=== PATIENT | female | born 1980 | race Caucasian/White ===

== ENCOUNTER 2022-01-25 01:29 | Emergency (ER) | payer MEDICAID ==
[~2022-01-25] VITALS: Ht 170.2 cm; Wt 54.5 kg
[~2022-01-25 01:29] MED LIST: CLON-527 PO; HYDR50CA5 PO; LEVO100T PO; LEVO125T PO; LEVO50TA8 PO; SERT100T PO; TRAZ-251 PO
[2022-01-25 01:39] VITALS: BP 115/70
[2022-01-25 02:16] LABS: BASOPHILS # (AUTO) 0.1 X10'3 (0-0.2); BASOPHILS % (AUTO) 1.2 % (0-1); EOSINOPHILS # (AUTO) 0.1 X10'3 (0-0.9); EOSINOPHILS % (AUTO) 1.8 % (0-6); HEMATOCRIT 30.1 % (35.0-45.0); HEMOGLOBIN 9.8 g/dl (12.0-16.0); LYMPHOCYTES # (AUTO) 2.6 X10'3 (1.1-4.8); LYMPHOCYTES % (AUTO) 41.9 % (21-51); MEAN CORPUSCULAR HEMOGLOBIN 24.1 PG (27.0-31.0); MEAN CORPUSCULAR HGB CONC 32.4 g/dL (33.0-36.5); MEAN CORPUSCULAR VOLUME 74.3 FL (78-98); MEAN PLATELET VOLUME 7.8 FL (7.4-10.4); MONOCYTES # (AUTO) 0.4 X10'3 (0-0.9); MONOCYTES % (AUTO) 7.1 % (2-12); PLATELET COUNT 266 X10'3 (140-440); RED BLOOD COUNT 4.05 X10'6 (4.20-5.60); RED CELL DISTRIBUTION WIDTH 18.5 % (11.5-14.5); WHITE BLOOD COUNT 6.3 X10'3 (4.5-11.0)
[2022-01-25 02:31] LABS: ALANINE AMINOTRANSFERASE 18 U/L (12-78); ALBUMIN 3.8 G/DL (3.4-5.0); ALBUMIN/GLOBULIN RATIO 1.3 (1.1-1.5); ALKALINE PHOSPHATASE 48 IU/L (46-116); ANION GAP 9 (8-16); ASPARTATE AMINO TRANSFERASE 12 U/L (10-37); BILIRUBIN,TOTAL 0.2 MG/DL (0.1-1.0); BLOOD UREA NITROGEN 10 MG/DL (7-18); BUN/CREATININE RATIO 12.8 (6.6-38.0); CALCIUM 8.5 MG/DL (8.5-10.1); CHLORIDE 107 MMOL/L (99-107); CREATININE 0.78 MG/DL (0.40-0.90); GLUCOSE 96 MG/DL (70-104); POTASSIUM 3.4 MMOL/L (3.5-5.1); SODIUM 140 MMOL/L (135-145); TOTAL CARBON DIOXIDE 24.2 MMOL/L (24-32); TOTAL PROTEIN 6.8 G/DL (6.4-8.2); eGFR 82 ML/MIN
[2022-01-25 02:37] LABS: BETA HCG,QUANTITATIVE < 1.0 mIU/ml
== END 2022-01-25 02:52 ==
LOC: EEVIPCON 01:29 → ER 01:29
DX: Z00.8 Encounter for other general examination (principal); N93.8 Other specified abnormal uterine and vaginal bleeding; E03.9 Hypothyroidism, unspecified; F41.9 Anxiety disorder, unspecified; Z72.89 Other problems related to lifestyle; Z56.0 Unemployment, unspecified; Z91.040 Latex allergy status; Z88.0 Allergy status to penicillin; Z88.2 Allergy status to sulfonamides; Z88.1 Allergy status to other antibiotic agents; Z79.899 Other long term (current) drug therapy
CPT/HCPCS: 36415; 80053; 84702; 85025; 86870; 86885; 86900; 86901; 86905; 99283

== ENCOUNTER 2022-11-18 11:34 | Observation (INO) | payer MEDICAID ==
[~2022-11-18] VITALS: Ht 170.2 cm; Wt 57.7 kg
[2022-11-18 12:07] LABS: BASOPHILS % (AUTO) 0.7 % (0-1); EOSINOPHILS % (AUTO) 0.2 % (0-6); HEMATOCRIT 37.9 % (35.0-45.0); HEMOGLOBIN 12.2 g/dl (12.0-16.0); LYMPHOCYTES # (AUTO) 1.5 X10'3 (1.1-4.8); LYMPHOCYTES % (AUTO) 21.5 % (21-51); MEAN CORPUSCULAR HEMOGLOBIN 25.9 PG (27.0-31.0); MEAN CORPUSCULAR HGB CONC 32.3 g/dL (33.0-36.5); MEAN CORPUSCULAR VOLUME 80.4 FL (78-98); MEAN PLATELET VOLUME 8.2 FL (7.4-10.4); MONOCYTES # (AUTO) 0.4 X10'3 (0-0.9); MONOCYTES % (AUTO) 5.3 % (2-12); NEUTROPHILS # (AUTO) 5.1 X10'3 (1.8-7.7); NEUTROPHILS % (AUTO) 72.3 % (42-75); PLATELET COUNT 239 X10'3 (140-440); RED BLOOD COUNT 4.71 X10'6 (4.20-5.60); RED CELL DISTRIBUTION WIDTH 21.8 % (11.5-14.5); WHITE BLOOD COUNT 7.1 X10'3 (4.5-11.0)
[2022-11-18 12:23] LABS: ALANINE AMINOTRANSFERASE 15 U/L (12-78); ALBUMIN 4.2 G/DL (3.4-5.0); ALBUMIN/GLOBULIN RATIO 1.4 (1.1-1.5); ALKALINE PHOSPHATASE 67 IU/L (46-116); ANION GAP 10 (8-16); ASPARTATE AMINO TRANSFERASE 15 U/L (10-37); BILIRUBIN,TOTAL 0.5 MG/DL (0.1-1.0); BLOOD UREA NITROGEN 5 MG/DL (7-18); BUN/CREATININE RATIO 6.1 (10.0-20.0); CALCIUM 9.2 MG/DL (8.5-10.1); CHLORIDE 104 MMOL/L (99-107); CREATININE 0.82 MG/DL (0.40-0.90); GLUCOSE 99 MG/DL (70-104); POTASSIUM 3.8 MMOL/L (3.5-5.1); SODIUM 139 MMOL/L (135-145); TOTAL CARBON DIOXIDE 25.1 MMOL/L (24-32); TOTAL PROTEIN 7.2 G/DL (6.4-8.2); eGFR 77 ML/MIN
[2022-11-18 12:38] LABS: ANISOCYTOSIS 3+; ELLIPTOCYTES 1+; PLATELET ESTIMATE NORMAL; TEAR DROP CELLS 1+
[2022-11-18] MEDS ORDERED: nitroGLYCERIN 1gm ointment UD TP ONE (14:35)
[2022-11-18] MEDS ORDERED: LORazepam 2 mg/ml vial IV ONE (14:35)
[2022-11-18] MEDS ORDERED: aspirin 325mg tablet, delayed-release (Ecotrin) PO ONE (14:35)
[2022-11-18 14:53] LABS: ETHANOL < 0.010 GM/DL (0.0-0.010)
[2022-11-18 14:54] LABS: D-DIMER 0.57 MG/L FEU (0-0.50)
[2022-11-18 15:36] LABS: URINE AMPHETAMINE SCREEN NEGATIVE (Neg); URINE BARBITUATE SCREEN NEGATIVE (Neg); URINE BENZODIAZEPINES SCREEN POSITIVE (Neg); URINE CANNABINOID SCREEN NEGATIVE (Neg); URINE COCAINE SCREEN NEGATIVE (Neg); URINE METHADONE SCREEN NEGATIVE (Neg); URINE OPIATE SCREEN NEGATIVE (Neg); URINE PHENCYCLIDINE SCREEN NEGATIVE (Neg)
[2022-11-18] MEDS ORDERED: iohexol 350MG/ML 100ml bottle IV ONE (16:11)
[2022-11-18 16:38] LABS: URINE HCG NEGATIVE (NEG)
--- NOTE | 2022-11-18 17:00 | NUR ---
PT HAS BEEN PACING SINCE ARRIVING TO ER. PT WENT OUTSIDE MULTIPLE TIMES TO SMOKE AFTER BEING EDUCATED BY STAFF AND MD. EDUCATION PROVIDED. MEDS AND DIAGNOSTICS INCLUDING LABS WERE LATE R/T NOT BEING ABLE TO FIND PT. NON COMPLIAMNT AND REFUSING MEDS SUCH NITRO AND ATIVAN. PT STATED TO THIS NURSE, "IT'S OKAY I TOOK A KLONOPIN A LITTLE BIT AGO WHEN I WENT TO MY CAR." PT REDIRECTED AND EDUCATED REGARDING HOSPITAL POLICY THAT PT CANNOT SELF MEDICATE IN THE PARKING LOT. PT STATED, "OH, IT'S OKAY I TAKE IT ALL THE TIME." HUDSON AND MD NOTIFIED.
[2022-11-18] MEDS ORDERED: magnesium 2GM in 50ml NS 50 ML IV PRN (17:25)
[2022-11-18] MEDS ORDERED: magnesium 4gm in 100ml NS 100 ML IV PRN (17:25)
[2022-11-18] MEDS ORDERED: mag hydrox/Alum hydrox/simeth 30ml oral suspension PO PRN (17:25)
[2022-11-18] MEDS ORDERED: magnesium Cl slow-release 64mg tablet PO PRN (17:25)
[2022-11-18] MEDS ORDERED: ondansetron/PF 4mg/2ml inj IV PRN (17:25)
[2022-11-18] MEDS ORDERED: regadenoson 0.4mg/5ml syringe IV PRN (17:25)
[2022-11-18] MEDS ORDERED: nitroGLYCERIN 0.4mg SUBLingual tab SL PRN (17:25)
[2022-11-18] MEDS ORDERED: potassium Cl 20 mEq SR tablet PO PRN ×2 (17:25)
[2022-11-18] MEDS ORDERED: magnesium hydroxide 30ml (MOM) UD suspension PO PRN (17:25)
[2022-11-18] MEDS ORDERED: potassium Cl 40MEQ/1/2NS 520ml 520 ML IV PRN (17:25)
[2022-11-18] MEDS ORDERED: metoprolol tartrate 1mg/ml inj IV PRN (17:25)
[2022-11-18] MEDS ORDERED: acetaminophen 325mg tablet PO PRN (17:25)
[2022-11-18] MEDS ORDERED: morphine 2 MG/ML inj. syringe IV PRN ×2 (17:25)
[2022-11-18] MEDS ORDERED: aminophylline 250mg/10ml inj. IV PRN (17:25)
[2022-11-18] MEDS: normal saline 1000ml 1,000 ML IV SCH (18:25)
[2022-11-18] MEDS: K and/or MAG REPLACEMENT MC SCH (20:00)
[2022-11-18] MEDS: docusate sod 100mg capsule PO SCH (20:00)
[2022-11-19] VITALS (11 sets, daily range): BP systolic 112–143; BP diastolic 58–80
[2022-11-19] MEDS: normal saline 1000ml 1,000 ML IV SCH ×2 (03:43→11:20)
--- NOTE | 2022-11-19 07:04 | NUR ---
PT REQ 1MG CLONAZEPAM THAT SHE TAKES QID. RN PAGED DR VINES PT IS REQ AND STRESS TEST AT 0900. PER TECH CLONAZEPAM SHOULD NOT AFFECT TEST.
--- NOTE | 2022-11-19 07:48 | NUR ---
OSWALD VINES D/T PT IS REQ HER HOME MED 1MG CLONAZEPAM PRIOR TO STRESS TEST AT 0900.
[2022-11-19] MEDS: docusate sod 100mg capsule PO SCH (08:00)
[2022-11-19] MEDS: K and/or MAG REPLACEMENT MC SCH (08:00)
--- NOTE | 2022-11-19 08:07 | NUR ---
PER DR VINES RN MAY ORD 1MG CLONAZEPAM ONCE PO AND ADMIN P/T STRESS TEST.
[2022-11-19] MEDS ORDERED: clonazePAM 1mg tablet PO ONE (08:10)
--- NOTE | 2022-11-19 08:49 | NUR ---
Patient in room ED 3. I have received report from [facility] ER nurse and had the opportunity to ask questions and assume patient care.
--- NOTE | 2022-11-19 10:30 | NUR ---
Patient just arrived to the floor at this time. Slight headache and was given coffee as well
[2022-11-19] MEDS ORDERED: LEVO75TA7 PO (12:46)
[2022-11-19] MEDS ORDERED: FERR325T29 PO (12:46)
[2022-11-19] MEDS ORDERED: CLON1TAB12 PO (12:46)
--- NOTE | 2022-11-19 14:05 | NUR ---
PAGER ID: [phone] MESSAGE: [facility] [phone] Re: [id number] David, A Patient ECHO complete preliminary is still pending, patient awaiting discharge at this time. Thank
[2022-11-19 14:23] LABS: CHOL/HDL RATIO 4.1 (0.00-4.99); CHOLESTEROL 138 MG/DL (0-200); HDL CHOLESTEROL 34 MG/DL (35-60); LDL CHOLESTEROL 87 MG/DL (50-100); TRIGLYCERIDES 81 MG/DL (20-135)
--- NOTE | 2022-11-19 15:51 | NUR ---
Patient discharged home with no new medications, all scans were negative. Patient IV taken out at the time of discharge, canula whole and intact upon inspection. Patient showed minimal signs of bleeding. Patient walked out under her own power and was accompanied by nurse staff community health, patient was transported home via private vehicle.
== END 2022-11-19 15:05 | disposition home or self-care (01) ==
LOC: ER 11:34 → ED HOLD 17:28 → INTOOBSV 17:28 → PCU 3S 11-19 10:26
PROVIDERS: ADMIT Family Medicine; ATTEND Family Medicine
DX: R07.89 Other chest pain (principal); F41.0 Panic disorder [episodic paroxysmal anxiety]; E03.9 Hypothyroidism, unspecified; F17.210 Nicotine dependence, cigarettes, uncomplicated; Z88.0 Allergy status to penicillin; Z91.040 Latex allergy status; Z85.41 Personal history of malignant neoplasm of cervix uteri; Z53.29 Procedure and treatment not carried out because of patient's decision for other reasons; Z79.899 Other long term (current) drug therapy
CPT/HCPCS: 36415; 71045; 71275; 78452; 80053; 80061; 80305; 80320; 81025; 83735; 83880; 84132; 84484; 85025; 85379; 93005; 93017; 93306; 96360; 96361; 99285; A9500; G0378; J2785; J3490; J7030; Q9967; 85008

== ENCOUNTER 2024-03-13 20:24 | Emergency (ER) | payer MEDICAID ==
[~2024-03-13] VITALS: Ht 170.2 cm; Wt 53.5 kg
[~2024-03-13 20:24] MED LIST changes: -CLON-527 PO; +CLON1TAB12 PO; +FERR325T29 PO; -HYDR50CA5 PO; -LEVO100T PO; -LEVO125T PO; -LEVO50TA8 PO; +LEVO75TA7 PO; -SERT100T PO; -TRAZ-251 PO
[2024-03-13] MEDS ORDERED: CEPH-585 PO (21:28)
[2024-03-13] MEDS ORDERED: HYDR-3972 PO (21:28)
[2024-03-13] MEDS: ketorolac trometh 30MG/ML vial 30 MG/ML VIAL IM ONE (21:31)
[2024-03-13] MEDS: TETanus/Pertussis (Acell)/Diphther VAC/PF (Tdap-Adult) 0.5ml syringe IMVAC ONE (21:33)
[2024-03-13 21:59] VITALS: BP 120/80; PULSE 67; RESP 16; TEMP 98.4; O2SAT 99
== END 2024-03-13 22:00 | disposition home or self-care (01) ==
LOC: ER 20:24
DX: S61.431A Puncture wound without foreign body of right hand, initial encounter (principal); E03.9 Hypothyroidism, unspecified; F41.9 Anxiety disorder, unspecified; Z91.040 Latex allergy status; Z88.1 Allergy status to other antibiotic agents; Z88.0 Allergy status to penicillin; Z88.2 Allergy status to sulfonamides; X58.XXXA Exposure to other specified factors, initial encounter; Y93.89 Activity, other specified; Y92.89 Other specified places as the place of occurrence of the external cause; Y99.8 Other external cause status
CPT/HCPCS: 73130; 90471; 90715; 99283; A6258; A6449

== ENCOUNTER 2024-03-31 17:37 | Emergency (ER) | payer MEDICAID ==
[~2024-03-31] VITALS: Ht 160 cm; Wt 54.1 kg
[2024-03-31 18:00] VITALS: BP 108/58; PULSE 76; RESP 18; O2SAT 99
[2024-03-31 19:11] VITALS: TEMP 98.9
== END 2024-03-31 19:15 | disposition home or self-care (01) ==
LOC: ER 17:39
DX: I80.3 Phlebitis and thrombophlebitis of lower extremities, unspecified (principal); E03.9 Hypothyroidism, unspecified; F41.9 Anxiety disorder, unspecified; F41.0 Panic disorder [episodic paroxysmal anxiety]; Z88.0 Allergy status to penicillin; Z88.2 Allergy status to sulfonamides; Z88.1 Allergy status to other antibiotic agents; Z91.040 Latex allergy status; Z79.899 Other long term (current) drug therapy; Z56.0 Unemployment, unspecified
CPT/HCPCS: 99281

== ENCOUNTER 2024-08-14 23:42 | Emergency (ER) | payer MEDICAID ==
[~2024-08-14] VITALS: Ht 170.2 cm; Wt 54.5 kg
[2024-08-14 23:54] VITALS: BP 123/53; PULSE 81; RESP 18; TEMP 97.8; O2SAT 96
== END 2024-08-15 02:07 | disposition home or self-care (01) ==
LOC: ER 23:43
DX: S90.02XA Contusion of left ankle, initial encounter (principal); E03.9 Hypothyroidism, unspecified; G89.11 Acute pain due to trauma; Z91.040 Latex allergy status; Z88.0 Allergy status to penicillin; Z88.1 Allergy status to other antibiotic agents; Z88.2 Allergy status to sulfonamides; Z79.899 Other long term (current) drug therapy; W23.0XXA Caught, crushed, jammed, or pinched between moving objects, initial encounter; Y93.89 Activity, other specified; Y92.89 Other specified places as the place of occurrence of the external cause; Y99.8 Other external cause status
CPT/HCPCS: 73610; 99283; J7030; L1930; A6449